=== PATIENT | female | born 1990 | race African-American/Black ===

== ENCOUNTER 2016-08-07 20:12 | Emergency (ER) | payer SELFPAY ==
[~2016-08-07] VITALS: Ht 162.6 cm; Wt 92.0 kg
[~2016-08-07 20:12] MED LIST: AUGM875T PO; PREN0.01 PO
[2016-08-07 20:13] VITALS: BP 130/64; PULSE 85; RESP 15; TEMP 98.6; O2SAT 98
[2016-08-07 20:19] VITALS: BP 199/100; PULSE 62; RESP 18; TEMP 98.3; O2SAT 100
--- NOTE | 2016-08-07 22:09 | PD ---
HPI Chief Complaint: GI Complaint Time Seen by Provider: 21:58 Travel History International Travel<30 days: No Contact w/Intl Traveler<30days: No Traveled to known affect area: No History of Present Illness HPI The patient was seen and examined in the presence of the nurse. This patient has had nausea and vomiting on and off for the last 2 weeks. She doesn't think she is but is not on control. No diarrhea or fever. Not having abdominal pain. She just feels weak and has no energy. Symptoms severity is moderate. No alleviating factors. PFSH Past Medical History Medical History: Denies Significant Hx Diminished Hearing: No Immunizations Current: Yes Influenza Vaccination: Yes ?: Unknown LMP: APRIL : 3 Para: 2 Past Surgical History Surgical History: No Previous Surgery Social History Alcohol Use: No Tobacco Use: No Substance Use: No Allergies-Medications (Allergen,Severity, Reaction): Coded Allergies: No Known Allergies (Unverified , 08/07/16) Reported Meds & Prescriptions Reported Meds & Active Scripts Active No Active Prescriptions or Reported Medications Review of Systems General / Constitutional: No: Fever Eyes: No: Visual changes HENT: No: Headaches Cardiovascular: No: Chest Pain or Discomfort Respiratory: No: Shortness of Breath Gastrointestinal: Positive: Nausea, Vomiting, No: Abdominal Pain Genitourinary: No: Dysuria Musculoskeletal: Positive: Weakness, No: Pain Skin: No Rash Neurologic: Positive: Weakness Psychiatric: No: Depression Endocrine: No: Polydipsia Hematologic/Lymphatic: No: Easy Bruising Physical Exam Narrative GENERAL: Well-nourished, well-developed patient in no apparent distress. SKIN: Focused skin assessment reveals no rash and nodules. Skin is Warm and dry. HEAD: Atraumatic. Normocephalic. EYES: Pupils equal and round. No scleral icterus. No injection or drainage. ENT: No nasal bleeding or discharge. Mucous membranes pink and moist. NECK: Trachea midline. No JVD. CARDIOVASCULAR: Regular rate and rhythm. No murmur appreciated. RESPIRATORY: No accessory muscle use. Clear to auscultation. Breath sounds equal bilaterally. GASTROINTESTINAL: Abdomen soft, non-tender, nondistended. Hepatic and splenic margins not palpable. MUSCULOSKELETAL: No obvious deformities. No clubbing. No cyanosis. No edema. NEUROLOGICAL: Awake and alert. No obvious cranial nerve deficits. Motor grossly within normal limits. Normal speech. PSYCHIATRIC: Appropriate mood and affect; insight and judgment normal. Data Data Last Documented VS Vital Signs Date Time Temp Pulse Resp B/P Pulse Ox O2 Delivery O2 Flow Rate FiO2 08/07/16 22:16 79 121/71 99 Room Air 08/07/16 20:19 98.3 18 Orders Complete Blood Count With Diff (08/07/16 22:02) Basic Metabolic Panel (Bmp) (08/07/16 22:02) Ed Urine Pregnancytest Poc (08/07/16 22:02) Iv Access Insert/Monitor (08/07/16 22:02) Ondansetron Inj (Zofran Inj) (08/07/16 22:15) Sodium Chlor 0.9% 1000 Ml Inj (Ns 1000 M (08/07/16 22:15) Labs Laboratory Tests Test 08/07/16 22:17 White Blood Count 9.4 TH/MM3 Red Blood Count 4.32 MIL/MM3 Hemoglobin 11.9 GM/DL Hematocrit 36.0 % Mean Corpuscular Volume 83.3 FL Mean Corpuscular Hemoglobin 27.7 PG Mean Corpuscular Hemoglobin 33.2 % Concent Red Cell Distribution Width 13.5 % Platelet Count 336 TH/MM3 Mean Platelet Volume 8.9 FL Neutrophils (%) (Auto) 73.6 % Lymphocytes (%) (Auto) 19.3 % Monocytes (%) (Auto) 5.6 % Eosinophils (%) (Auto) 1.2 % Basophils (%) (Auto) 0.3 % Neutrophils # (Auto) 7.0 TH/MM3 Lymphocytes # (Auto) 1.8 TH/MM3 Monocytes # (Auto) 0.5 TH/MM3 Eosinophils # (Auto) 0.1 TH/MM3 Basophils # (Auto) 0.0 TH/MM3 CBC Comment DIFF FINAL Differential Comment Sodium Level 138 MEQ/L Potassium Level 3.6 MEQ/L Chloride Level 104 MEQ/L Carbon Dioxide Level 23.9 MEQ/L Anion Gap 10 MEQ/L Blood Urea Nitrogen 6 MG/DL Creatinine 0.72 MG/DL Estimat Glomerular Filtration 119 ML/MIN Rate Random Glucose 84 MG/DL Calcium Level 9.0 MG/DL MDM Medical Decision Making Medical Screen Exam Complete: Yes Emergency Medical Condition: Yes Medical Record Reviewed: Yes Differential Diagnosis Nausea and vomiting of , gastroenteritis, colitis, dehydration Narrative Course I have reviewed the patient's electronic medical record. Patient is a frequent visitor to the ER. She's been here for issues multiple times IV placed I gave her IV Zofran and 1 L normal saline IV CBC is normal Metabolic profile is normal Urine is positive Patient feels improved and stable for outpatient care Diagnosis Primary Impression: Nausea and vomiting during Additional Instructions: The patient was advised to follow up with their physician and return if they worsen. Med/Other Pt SpecificInfo: Other Scripts No Active Prescriptions or Reported Meds Disposition: DISCHARGE HOME Condition: Stable Giancarlo Diego MD Aug 07, 2016 22:09
[2016-08-07] MEDS ORDERED: SODIUM CHLOR 0.9% 1000 ML INJ 1,000 ML IV ONE (22:15)
[2016-08-07] MEDS ORDERED: ONDANSETRON HCL 4 MG/2 ML VIAL IV ONE (22:15)
[2016-08-07 22:16] VITALS: BP 121/71; PULSE 79; O2SAT 99
[2016-08-07 22:38] LABS: BASOPHIL % 0.3 % (0.0-2.0); EOSINOPHIL # 0.1 TH/MM3 (0-0.4); EOSINOPHIL % 1.2 % (0.0-4.0); HEMO FLAGS DIFF FINAL; LYMPH % 19.3 % (9.0-44.0); LYMPHOCYTE # 1.8 TH/MM3 (1.0-4.8); MEAN CELL VOLUME 83.3 FL (80.0-100.0); MEAN CORPUSCULAR HEMOGLOBIN 27.7 PG (27.0-34.0); MEAN CORPUSCULAR HGB CONC 33.2 % (32.0-36.0); MONO % 5.6 % (0.0-8.0); NEUT % 73.6 % (16.0-70.0); PLATELET COUNT 336 TH/MM3 (150-450); RED BLOOD COUNT 4.32 MIL/MM3 (4.00-5.30); RED CELL DISTRIBUTION WIDTH 13.5 % (11.6-17.2); WHITE BLOOD COUNT 9.4 TH/MM3 (4.0-11.0)
[2016-08-07 22:58] LABS: BICARBONATE 23.9 MEQ/L (21.0-32.0); POTASSIUM 3.6 MEQ/L (3.5-5.1)
[2016-08-08 00:39] VITALS: BP 128/78
== END 2016-08-08 00:40 | disposition home or self-care (01) ==
LOC: NEPD 20:12
DX: O21.9 Vomiting of pregnancy, unspecified (principal); Z3A.00 Weeks of gestation of pregnancy not specified
CPT/HCPCS: 80048; 84703; 85025; 96361; 96374; 99284; J2405; J7030